=== PATIENT | male | born 1985 | race Caucasian/White ===

== ENCOUNTER 2020-10-14 22:29 | Inpatient (IN) | payer MEDICARE, MEDICAID, SELFPAY ==
--- NOTE | ~2020-10-14 | CT_ITS ---
EXAMINATION: CT ABDOMEN AND PELVIS WITHOUT CONTRAST CLINICAL INFORMATION: Severe abdominal pain. COMPARISON: None. TECHNIQUE: Contiguous axial thin section helical images of the abdomen and pelvis were performed without oral or IV contrast. The data set was reformatted in the coronal and sagittal planes and reviewed on an independent workstation. DLP: 723 mGy-cm. FINDINGS: The visualized lung bases are clear. The visualized portions of the heart are unremarkable. The liver is of normal size and attenuation without focal lesions nor intrahepatic biliary ductal dilation. A normal gallbladder is identified. There is no wall thickening or discernible pericholecystic fluid. The spleen and adrenal glands are unremarkable. The pancreas is of overall normal size and attenuation with mild edema. There is extensive adjacent fat stranding and trace free fluid. There are no drainable fluid collections. Both kidneys are of normal size and attenuation without hydronephrosis or nephrolithiasis. There is trace free fluid within the right paracolic gutter. There is neither mesenteric nor retroperitoneal lymphadenopathy. Normal unopacified loops of small and large bowel are identified. A normal appendix is identified. There is trace pelvic free fluid. The urinary bladder is unremarkable. There is neither pelvic nor inguinal lymphadenopathy. Bone windows: Neither sclerotic nor lytic bone lesions are identified. CT/CT abdomen pelvis wo con IMPRESSION: Fat stranding and trace free fluid about the pancreas indicative of pancreatitis. No drainable fluid collections. Neither necrosis or nephrolithiasis. Automated exposure control (Care Dose) Adjustment of the mA and/or kv according to patient size (this includes techniques or standardized protocols for targeted exams where dose is matched to indication / reason for exam; i.e. extremities or head).
--- NOTE | ~2020-10-14 | US_ITS ---
EXAMINATION: US ABDOMEN LIMITED CLINICAL INFORMATION: Pancreatitis, pancreas only. COMPARISON: CT abdomen from 10/15/2020 TECHNIQUE: Real-time imaging of the pancreas. FINDINGS: PANCREAS: The pancreas is partially obscured by overlying bowel gas. The visualized portions of the pancreas are unremarkable. US/US abdomen limited IMPRESSION: Pancreas is partially obscured by overlying bowel gas. Visualized portions are unremarkable.
[2020-10-14 22:39] VITALS: BP 160/98; PULSE 66; RESP 22; TEMP 36.8; O2SAT 97; BMI 34.2
[2020-10-14 23:06] LABS: MANUAL DIFF FLAG NO
[2020-10-14 23:07] LABS: Basophils Percent Auto 0.3 % (0-2); Eosinophils Absolute Auto 0.1 X10*3/uL (0.0-0.4); Eosinophils Percent Auto 0.4 % (0-4); Hematocrit 43.4 % (42-52); Hemoglobin 15.5 g/dl (14.0-18.0); Imm Gran Abs Auto 0.03 X10*3/uL (0.00-0.03); Imm Gran Pct Auto 0.2 % (0.0-0.4); Lymphocytes Absolute Auto 1.5 X10*3/uL (1.2-4.9); Lymphocytes Percent Auto 11.5 % (20-40); Mean Corpuscular HGB Conc 35.7 g/dl (31.0-36.0); Mean Corpuscular Hemoglobin 28.5 pg (27.0-33.0); Mean Corpuscular Volume 79.8 fL (80-98); Monocytes Absolute Auto 0.6 X10*3/uL (0.1-1.2); Monocytes Percent Auto 4.8 % (2-11); Neutrophils Absolute Auto 11.1 X10*3/uL (2.0-8.3); Neutrophils Percent Auto 82.8 % (45-73); Platelet Count 203 X10*3/uL (160-400); Red Blood Count 5.44 X10*6/uL (4.60-5.80); Red Cell Distribution Width 14.4 % (11.0-16.0); White Blood Count 13.4 X10*3/uL (4.8-10.8)
[2020-10-14 23:34] LABS: Anion Gap 15 (12-20); Blood Urea Nitrogen 7 mg/dL (9-16); Calcium 9.3 mg/dL (8.4-10.2); Carbon Dioxide 23 mmol/L (22-29); Chloride 100 mmol/L (96-108); Creatinine Clr Calc Pharmacy 129.9; Estimated Glomerular Filt Rate > 60; Glucose Random 160 mg/dL (60-115); Lipase 299 U/L (8-78); Potassium 3.7 mmol/L (3.3-5.1); Sodium 134 mmol/L (135-145)
[2020-10-14 23:56] VITALS: BP 159/98; PULSE 57; RESP 16; O2SAT 100
--- NOTE | 2020-10-14 23:58 | ED_ITS ---
HPI - Abdominal Pain General Chief Complaint: Abdominal Pain Stated Complaint: Abdominal pain Time Seen by Provider: 10/14/20 23:54 Source: patient Mode of arrival: ambulatory Limitations: no limitations History of Present Illness HPI narrative: 35-year-old male with history of pancreatitis presented today with severe abdominal pain started 2 days ago after drink alcohol and ate high fat foods, patient describes the pain as progressively worsening of the pain but been constant, pain is severe (10/10), pain is localized to the left side of the abdomen and epigastric area and radiates to the left flank area, pain is associated with nausea and vomiting and inability to tolerate p.o. intake, pain is worsening by food, nothing relieves the pain, patient had similar symptoms in the past when he had pancreatitis. Related Data Allergies Allergy/AdvReac Type Severity Reaction Status Date / Time clonazepam AdvReac Mild FORGETFUL Verified 10/14/20 22:43 Review of Systems Review of Systems All other systems are reviewed and are negative Constitutional: Reports as per HPI and Reports no additional constitutional complaints Eyes: Reports as per HPI and Reports no additional eye complaints Reports system reviewed and no additional complaints, except as documented Cardiovascular: Reports as per HPI and Reports no additional cardiovascular complaints Respiratory: Reports as per HPI and Reports no additional respiratory complaints Gastrointestinal: Reports as per HPI and Reports no additional gastrointestinal complaints Genitourinary: Reports no additional female genitourinary complaints Musculoskeletal: Reports no additional musculoskeletal complaints Skin/Breast: Reports system reviewed and no additional complaints, except as docu Psychiatric: Reports no additional psychiatric complaints Endocrine: Reports no additional endocrine complaints Hematologic/Lymphatic: Reports no additional hematologic/lymphatic complaints Allergic/Immunologic: Reports no additional allergic/immunologic complaints Reports system reviewed and no additional complaints, except as documented and Reports Abnormal speech present Physical Exam Vital Signs: Vital Signs: Last Vital Signs Temp 98.2 F 10/14/20 22:39 Pulse 65 10/15/20 01:06 Resp 16 10/15/20 01:07 BP 132/71 10/15/20 01:06 Pulse Ox 98 10/15/20 01:06 Body Mass Index 34.2 Vital signs have been reviewed as normal and appeared to be correct. Blood pressure in the high range. Heart rate tachycardia. Respiration rate normal. Temperature normal. Oxygen saturation normal. Appearance: Alert. Oriented X3. No acute distress. Head: Normal external exam. Normocephalic. Atraumatic. No Pacheco signs noted. No raccoon eyes noted Eyes: PERRLA. EOMI. Conjunctiva and sclera normal. Eyelids normal. ENT: TM's Normal. Pharynx normal. Uvula midline. Moist mucous membranes. No trismus noted. No drooling noted. No muffled voice noted. Neck: Normal inspection. Neck supple. FROM. No adenopathy. Thyroid Normal. No meningeal signs. No neck mass noted. CVS: Normal heart rate and rhythm. Heart sound normal. No murmurs noted. Pulses normal throughout. Respiratory: No respiratory distress. Painless inspiration. Breath sounds normal. No wheezes/rales/rhonchi noted. Chest nontender. No accessory muscle usage noted or decreased air movement noted. Abdomen: Soft and mild tenderness in the epigastric area.. Bowel sounds normal in all 4 quadrants. No distention noted. No organomegaly noted. No visible injury noted. Back: No CVA tenderness. Full range of motion noted. Skin: Skin warm and dry. Normal skin color. Normal skin turgor. No rashes/lesions/lacerations noted. Extremities: No lower extremity edema. Extremities exhibit normal range of motion. Extremities nontender. Neuro: Oriented X 3. No motor deficit. No sensory deficit. Reflexes normal. Course Course Course Narrative: Acute alcoholic pancreatitis with intractable pain and vomiting. Patient required multiple doses of Dilaudid and Zofran/IV hydration. Will admit the patient for further hydration and pain control. MDM - Abdominal Pain Lab Data Attestation: I reviewed the patient's lab results. Result diagrams: 10/14/20 22:51 10/14/20 22:51 Labs: Lab Results 10/14/20 10/14/20 10/14/20 Range/Units 22:51 22:51 22:51 WBC 13.4 H (4.8-10.8) X10*3/uL RBC 5.44 (4.60-5.80) X10*6/uL Hgb 15.5 (14.0-18.0) g/dl Hct 43.4 (42-52) % MCV 79.8 L (80-98) fL MCH 28.5 (27.0-33.0) pg MCHC 35.7 (31.0-36.0) g/dl RDW 14.4 (11.0-16.0) % Plt Count 203 (160-400) X10*3/uL MPV 9.0 L (9.4-12.4) fL Immature Gran % (Auto) 0.2 (0.0-0.4) % Neut % (Auto) 82.8 H (45-73) % Lymph % (Auto) 11.5 L (20-40) % [place] % (Auto) 4.8 (2-11) % Eos % (Auto) 0.4 (0-4) % Baso % (Auto) 0.3 (0-2) % Lymph # (Auto) 1.5 (1.2-4.9) X10*3/uL [place] # (Auto) 0.6 (0.1-1.2) X10*3/uL Eos # (Auto) 0.1 (0.0-0.4) X10*3/uL Baso # (Auto) 0.0 (0.0-0.2) X10*3/uL Abs Immat Gran (auto) 0.03 (0.00-0.03) X10*3/uL Absolute Neuts (auto) 11.1 H (2.0-8.3) X10*3/uL Absolute Nucleated RBC 0.000 (0.0-0.012) X10*3/uL Nucleated RBC % (auto) 0.0 (0.0-0.2) /100WBC Hold Purple Top SEE NOTE Hold Blue Top Sodium 134 L (135-145) mmol/L Potassium 3.7 (3.3-5.1) mmol/L Chloride 100 (96-108) mmol/L Carbon Dioxide 23 (22-29) mmol/L Anion Gap 15 (12-20) BUN 7 L (9-16) mg/dL Creatinine 0.91 (0.5-1.4) mg/dL Estim Creat Clear Calc 129.9 Estimated GFR > 60 Random Glucose 160 H (60-115) mg/dL Calcium 9.3 (8.4-10.2) mg/dL Lipase 299 H (8-78) U/L 10/14/20 Range/Units 22:51 WBC (4.8-10.8) X10*3/uL RBC (4.60-5.80) X10*6/uL Hgb (14.0-18.0) g/dl Hct (42-52) % MCV (80-98) fL MCH (27.0-33.0) pg MCHC (31.0-36.0) g/dl RDW (11.0-16.0) % Plt Count (160-400) X10*3/uL MPV (9.4-12.4) fL Immature Gran % (Auto) (0.0-0.4) % Neut % (Auto) (45-73) % Lymph % (Auto) (20-40) % [place] % (Auto) (2-11) % Eos % (Auto) (0-4) % Baso % (Auto) (0-2) % Lymph # (Auto) (1.2-4.9) X10*3/uL [place] # (Auto) (0.1-1.2) X10*3/uL Eos # (Auto) (0.0-0.4) X10*3/uL Baso # (Auto) (0.0-0.2) X10*3/uL Abs Immat Gran (auto) (0.00-0.03) X10*3/uL Absolute Neuts (auto) (2.0-8.3) X10*3/uL Absolute Nucleated RBC (0.0-0.012) X10*3/uL Nucleated RBC % (auto) (0.0-0.2) /100WBC Hold Purple Top Hold Blue Top SEE NOTE Sodium (135-145) mmol/L Potassium (3.3-5.1) mmol/L Chloride (96-108) mmol/L Carbon Dioxide (22-29) mmol/L Anion Gap (12-20) BUN (9-16) mg/dL Creatinine (0.5-1.4) mg/dL Estim Creat Clear Calc Estimated GFR Random Glucose (60-115) mg/dL Calcium (8.4-10.2) mg/dL Lipase (8-78) U/L Imaging Data CT scan - abdomen: Radiologist's impression: Fat stranding and trace free fluid about the pancreas indicative of pancreatitis. No drainable fluid collections. Neither necrosis or nephrolithiasis. Discharge Plan Discharge Clinical Impression: Pancreatitis Patient Disposition: Admitted As Inpatient [facility] Past Medical History Medical History GERD (gastroesophageal reflux disease) H/O acute pancreatitis Social History Social History Alcohol intake: current Alcohol intake frequency: a few times a month Smoking Status: Never smoker Use of substances other than those prescribed or required for medical reasons: Yes Substance Use Type: Marijuana Advance Directives: No Advance Directives Information Provided: No
[2020-10-15] VITALS (13 sets, daily range): BP systolic 132–163; BP diastolic 66–88; PULSE 54–72; RESP 14–18; TEMP 36.1–37; O2SAT 96–99
[2020-10-15] MEDS: 0.9 % Sodium Chloride 1,000 ML 999 ML IVCONT (00:16)
[2020-10-15] MEDS: HYDROmorphone HCl 1 MG/ML SYRINGE IVPUSH ×3 (00:16→08:52)
[2020-10-15] MEDS: ondansetron HCL 4 MG/2 ML VIAL IVPUSH ×2 (00:16→09:40)
[2020-10-15 02:52] LABS: COVID-19 Test Negative (Negative)
[2020-10-15 03:20] LABS: Triglycerides 151 mg/dL
--- NOTE | 2020-10-15 03:29 | PC.NURSE ---
Pt continues to report L abd pain. Pt reports minimal improvement s/p dilaudid doses earlier. This RN to bedside with PRN morphine. Pt states morphine always makes my stomach worse. I'm telling you, it makes me bloated down by my private parts. Pt requesting pain med PRN order be changed to dilaudid. Hospitalist TT with pt's request, awaiting reply.
[2020-10-15] MEDS: Enoxaparin Sodium 40 MG/0.4 ML SYRINGE SUBCUT (03:48)
[2020-10-15] MEDS: HYDROmorphone HCl 0.5 MG/0.5 ML SYRINGE IVPUSH (03:49)
[2020-10-15] MEDS: 0.9 % Sodium Chloride 1,000 ML 200 ML IVCONT ×5 (03:50→23:34)
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
[2020-10-15] MEDS: HYDROmorphone HCl 0.5 MG/0.5 ML SYRINGE 2 MG IVPUSH ×5 (05:59→22:39)
[2020-10-15] MEDS: hydrOXYzine HCL 50 MG TABLET PO ×2 (05:59→20:35)
--- NOTE | 2020-10-15 06:21 | PC.NURSE ---
Report attempted x 1
[2020-10-15 07:52] LABS: Alanine Aminotransferase 22 U/L (0-40); Albumin Level 4.5 g/dL (3.5-5.0); Alkaline Phosphatase 65 U/L (39-117); Aspartate Amino Transferase 22 U/L (5-37); Bilirubin Direct 0.4 mg/dL (0.0-0.5); Bilirubin Total 1.2 mg/dL (0.0-1.0); Total Protein 7.5 g/dL (6.5-8.0)
[2020-10-15 08:55] LABS: Glucose Urine UA NEG (NEG); Leukocyte Esterase Urine NEG (NEG); Nitrite Urine NEG (NEG); Urine Blood TRACE (NEG); Urine Ketones 5 MG/DL (NEG); Urine Protein NEG (NEG-TRACE)
[2020-10-15 09:02] LABS: Appearance Urine CLEAR; Color Urine YELLOW
[2020-10-15 09:05] LABS: RBC Urine 0-2 /HPF (0); WBC Urine 0 /HPF (0-4)
[2020-10-15] MEDS: Ketorolac Tromethamine 15 MG/ML VIAL IV ×3 (10:01→22:05)
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
[2020-10-15] MEDS: 0.9 % Sodium Chloride Flush 3 ML SYRINGE IVFLUSH (14:47)
[2020-10-16] MEDS: Enoxaparin Sodium 40 MG/0.4 ML SYRINGE SUBCUT (02:41)
[2020-10-16] MEDS: HYDROmorphone HCl 0.5 MG/0.5 ML SYRINGE 2 MG IVPUSH ×2 (02:42→06:53)
[2020-10-16 03:47] VITALS: BP 153/90; PULSE 65; RESP 16; TEMP 37.2; O2SAT 99
[2020-10-16] MEDS: Ketorolac Tromethamine 15 MG/ML VIAL IV ×3 (03:58→16:07)
[2020-10-16] MEDS: 0.9 % Sodium Chloride 1,000 ML 200 ML IVCONT ×6 (03:58→23:33)
[2020-10-16 06:29] LABS: MANUAL DIFF FLAG NO
[2020-10-16 06:52] LABS: Basophils Absolute Auto 0.1 X10*3/uL (0.0-0.2); Basophils Percent Auto 0.5 % (0-2); Eosinophils Absolute Auto 0.2 X10*3/uL (0.0-0.4); Eosinophils Percent Auto 1.7 % (0-4); Hematocrit 38.4 % (42-52); Hemoglobin 13.3 g/dl (14.0-18.0); Imm Gran Abs Auto 0.03 X10*3/uL (0.00-0.03); Imm Gran Pct Auto 0.3 % (0.0-0.4); Lymphocytes Absolute Auto 2.1 X10*3/uL (1.2-4.9); Lymphocytes Percent Auto 20.4 % (20-40); Mean Corpuscular HGB Conc 34.6 g/dl (31.0-36.0); Mean Corpuscular Hemoglobin 28.3 pg (27.0-33.0); Mean Corpuscular Volume 81.7 fL (80-98); Mean Platelet Volume 9.4 fL (9.4-12.4); Monocytes Absolute Auto 0.6 X10*3/uL (0.1-1.2); Monocytes Percent Auto 5.8 % (2-11); Neutrophils Absolute Auto 7.4 X10*3/uL (2.0-8.3); Neutrophils Percent Auto 71.3 % (45-73); Platelet Count 170 X10*3/uL (160-400); Red Cell Distribution Width 14.4 % (11.0-16.0); White Blood Count 10.4 X10*3/uL (4.8-10.8)
[2020-10-16 07:19] LABS: Anion Gap 13 (12-20); Blood Urea Nitrogen 5 mg/dL (9-16); Carbon Dioxide 25 mmol/L (22-29); Chloride 103 mmol/L (96-108); Creatinine Clr Calc Pharmacy 140.7; Estimated Glomerular Filt Rate > 60; Glucose Random 100 mg/dL (60-115); Potassium 3.7 mmol/L (3.3-5.1); Sodium 137 mmol/L (135-145)
[2020-10-16 07:40] LABS: Calcium 8.7 mg/dL (8.4-10.2)
[2020-10-16 07:58] VITALS: BP 134/80; PULSE 91; RESP 16; TEMP 37.1; O2SAT 96
--- NOTE | 2020-10-16 10:38 | HO.PM.IMPN ---
Subjective Subjective Date of Service: 10/16/20 Interval History: the patient was seen and evaluated this morning Laying in bed, feels more comfortable today but still has significant amount of pain, no vomiting reported Denies any fever, chills or shortness of breath No reported other overnight events. Systemic review: No fever, chills or weakness No chest pain, palpitation No shortness of breath or coughing Abdominal pain still significant met improves with pain medications, no vomiting No urinary symptoms No any rash or wounds Physical Exam Vital Signs: Vital Signs: Last Vital Signs Temp 98.7 F 10/16/20 07:58 Pulse 91 10/16/20 07:58 Resp 16 10/16/20 07:58 BP 134/80 10/16/20 07:58 Pulse Ox 96 10/16/20 07:58 Body Mass Index 34.2 Const: Other: Constitutional : Alert, oriented, not in distress Neck : Normal inspection, Supple Cardiovascular : RRR, S1 S2, no lower extremity edema Respiratory : Good bilateral air entry, no crackles, wheezes or rhonchi Gastrointestinal: soft, lax, decreased bowel sounds, significant tenderness mainly in epigastric area Skin : Warm/Dry, No rash Neurological : Alert & oriented x3, No focal deficit Objective Data Current Medications Generic Name Dose Route Start Last Admin Trade Name Freq PRN Reason Stop Dose Admin Acetaminophen 650 mg 10/15/20 03:02 Acetaminophen 325 Mg Tablet PO Q6H PRN Pain, Mild (Pain Scale 1-3) Docusate Sodium 100 mg 10/15/20 03:02 Docusate Sodium 100 Mg Capsule PO DAILY PRN Constipation Enoxaparin Sodium 40 mg 10/15/20 03:02 10/16/20 02:41 Enoxaparin Sodium 40 Mg/0.4 Ml Syringe SUBCUT 40 mg Q24H LILLI Administration Hydromorphone HCl 2 mg 10/16/20 09:01 Hydromorphone Hcl 2 Mg/Ml Vial IVPUSH Q4H PRN Pain, Severe (Pain Scale 7-10) Hydroxyzine HCl 50 mg 10/15/20 05:24 10/15/20 20:35 Hydroxyzine Hcl 50 Mg Tablet PO 50 mg Q6H PRN Administration anxiety/restlessness Sodium Chloride 1,000 mls @ 200 mls/hr 10/15/20 03:02 10/16/20 09:06 Ns IVCONT 200 mls/hr .Q5H LILLI Administration Ketorolac Tromethamine 15 mg 10/15/20 10:00 10/16/20 09:10 Ketorolac Tromethamine 15 Mg/Ml Vial IV 10/16/20 16:01 15 mg Q6H LILLI Administration Ondansetron HCl 4 mg 10/15/20 03:02 10/15/20 09:40 Ondansetron Hcl 4 Mg/2 Ml Vial IVPUSH 4 mg Q8H PRN Administration Nausea and Vomiting Sodium Chloride 3 ml 10/15/20 08:00 10/16/20 09:06 0.9 % Sodium Chloride Flush 3 Ml Syringe IVFLUSH Not Given QSHIFT [facility] Labs CBC & Chem 7: 10/16/20 06:13 10/16/20 06:13 Assessment and Plan (1) Acute pancreatitis: Status: Acute (2) Leukocytosis: Status: Acute (3) Alcohol abuse: Status: Acute Assessment and Plan: 35-year-old presents to hospital with abdominal pain found to have pancreatitis acute pancreatitis secondary to alcohol abuse CT abdomen as reported Continue IV fluid Continue Dilaudid for pain control leukocytosis Likely secondary to acute pancreatitis No need for antibiotics alcohol abuse Continue CIWA as he has no hx of withdrawal Advised to quit drinking as this is the 4th time he has pancreatitis To get care team involved Obesity Could be contributing to his ongoing problems, advised to lose weight DVT prophylaxis: Lovenox
[2020-10-16 11:02] VITALS: BP 160/98; PULSE 81; RESP 16; TEMP 36.5; O2SAT 99
[2020-10-16] MEDS: HYDROmorphone HCl 2 MG/ML VIAL IVPUSH ×4 (11:04→23:30)
[2020-10-16] MEDS: hydrOXYzine HCL 50 MG TABLET PO (13:42)
[2020-10-16 14:55] VITALS: BMI 34.2
[2020-10-16 15:47] VITALS: BP 142/77; PULSE 74; RESP 14; TEMP 37; O2SAT 97
[2020-10-16] MEDS: 0.9 % Sodium Chloride Flush 3 ML SYRINGE IVFLUSH (16:09)
[2020-10-16 19:12] VITALS: BP 136/69; PULSE 62; RESP 14; TEMP 36.4; O2SAT 99
[2020-10-16 23:32] VITALS: BP 145/83; PULSE 75; RESP 18; TEMP 37; O2SAT 98
[2020-10-17] VITALS (9 sets, daily range): BP systolic 132–146; BP diastolic 67–84; PULSE 60–72; RESP 14–20; TEMP 36.6–37.2; O2SAT 96–99
[2020-10-17] MEDS: Enoxaparin Sodium 40 MG/0.4 ML SYRINGE SUBCUT (03:30)
[2020-10-17] MEDS: HYDROmorphone HCl 2 MG/ML VIAL IVPUSH ×2 (03:30→07:31)
[2020-10-17] MEDS: 0.9 % Sodium Chloride 1,000 ML 200 ML IVCONT (04:16)
[2020-10-17 07:12] LABS: Anion Gap 13 (12-20); Blood Urea Nitrogen 4 mg/dL (9-16); Calcium 8.4 mg/dL (8.4-10.2); Carbon Dioxide 26 mmol/L (22-29); Chloride 105 mmol/L (96-108); Creatinine Clr Calc Pharmacy 149.6; Estimated Glomerular Filt Rate > 60; Glucose Random 112 mg/dL (60-115); Sodium 140 mmol/L (135-145)
[2020-10-17] MEDS: Omeprazole 40 MG CAPSULE.DR PO (10:50)
[2020-10-17] MEDS: Ketorolac Tromethamine 15 MG/ML VIAL IV ×3 (10:50→22:35)
--- NOTE | 2020-10-17 14:07 | HO.PM.IMPN ---
Subjective Subjective Date of Service: 10/17/20 Interval History: the patient was seen and evaluated this morning Laying in bed, feels more comfortable today but still has epigastric and back pain, with episodes of diarrhea reported Denies any fever, chills or shortness of breath No reported other overnight events. Systemic review: No fever, chills or weakness No chest pain, palpitation No shortness of breath or coughing Abdominal pain still significant met improves with pain medications, no vomiting No urinary symptoms No any rash or wounds Physical Exam Vital Signs: Vital Signs: Last Vital Signs Temp 98.4 F 10/17/20 12:00 Pulse 60 10/17/20 12:00 Resp 19 10/17/20 12:00 BP 140/75 H 10/17/20 12:00 Pulse Ox 96 10/17/20 12:00 Body Mass Index 34.2 Const: Other: Constitutional : Alert, oriented, not in distress Neck : Normal inspection, Supple Cardiovascular : RRR, S1 S2, no lower extremity edema Respiratory : Good bilateral air entry, no crackles, wheezes or rhonchi Gastrointestinal: soft, lax, decreased bowel sounds, significant tenderness mainly in epigastric area Skin : Warm/Dry, No rash Neurological : Alert & oriented x3, No focal deficit Objective Data Current Medications Generic Name Dose Route Start Last Admin Trade Name Freq PRN Reason Stop Dose Admin Acetaminophen 650 mg 10/15/20 03:02 Acetaminophen 325 Mg Tablet PO Q6H PRN Pain, Mild (Pain Scale 1-3) Docusate Sodium 100 mg 10/15/20 03:02 Docusate Sodium 100 Mg Capsule PO DAILY PRN Constipation Enoxaparin Sodium 40 mg 10/15/20 03:02 10/17/20 03:30 Enoxaparin Sodium 40 Mg/0.4 Ml Syringe SUBCUT 40 mg Q24H LILLI Administration Hydromorphone HCl 1 mg 10/17/20 10:34 Hydromorphone Hcl 2 Mg/Ml Vial IVPUSH Q4H PRN Pain, Severe (Pain Scale 7-10) Hydroxyzine HCl 50 mg 10/15/20 05:24 10/16/20 13:42 Hydroxyzine Hcl 50 Mg Tablet PO 50 mg Q6H PRN Administration anxiety/restlessness Sodium Chloride 1,000 mls @ 150 mls/hr 10/15/20 03:02 10/17/20 10:04 Ns IVCONT Infused .[id number] LILLI Infusion Ketorolac Tromethamine 15 mg 10/17/20 11:00 10/17/20 10:50 Ketorolac Tromethamine 15 Mg/Ml Vial IV 10/18/20 17:01 15 mg Q6H LILLI Administration Omeprazole 40 mg 10/17/20 10:45 10/17/20 10:50 Omeprazole 40 Mg Capsule.Dr PO 40 mg DAILY@0630 LILLI Administration Ondansetron HCl 4 mg 10/15/20 03:02 10/15/20 09:40 Ondansetron Hcl 4 Mg/2 Ml Vial IVPUSH 4 mg Q8H PRN Administration Nausea and Vomiting Sodium Chloride 3 ml 10/15/20 08:00 10/17/20 07:18 0.9 % Sodium Chloride Flush 3 Ml Syringe IVFLUSH Not Given QSHIFT [facility] Labs CBC & Chem 7: 10/16/20 06:13 10/17/20 06:13 Assessment and Plan (1) Acute pancreatitis: Status: Acute (2) Leukocytosis: Status: Acute (3) Alcohol abuse: Status: Acute Assessment and Plan: 35-year-old presents to hospital with abdominal pain found to have pancreatitis acute pancreatitis secondary to alcohol abuse CT abdomen as reported Decrease the rate IV fluid Decrease Dilaudid for pain control Add Toradol Advanced diet to regular leukocytosis Likely secondary to acute pancreatitis No need for antibiotics alcohol abuse Continue CIWA as he has no hx of withdrawal Advised to quit drinking as this is the 4th time he has pancreatitis To get care team involved Obesity Could be contributing to his ongoing problems, advised to lose weight DVT prophylaxis: Lovenox
[2020-10-17] MEDS: HYDROmorphone HCl 2 MG/ML VIAL 1 MG IVPUSH ×3 (15:17→23:49)
[2020-10-17] MEDS: hydrOXYzine HCL 50 MG TABLET PO (19:21)
[2020-10-17] MEDS: 0.9 % Sodium Chloride 1,000 ML 150 ML IVCONT (19:26)
[2020-10-17] MEDS: 0.9 % Sodium Chloride Flush 3 ML SYRINGE IVFLUSH (22:35)
[2020-10-18 00:56] VITALS: RESP 16
[2020-10-18] MEDS: 0.9 % Sodium Chloride 1,000 ML 150 ML IVCONT (01:40)
[2020-10-18 03:44] VITALS: RESP 18
[2020-10-18] MEDS: HYDROmorphone HCl 2 MG/ML VIAL 1 MG IVPUSH (03:44)
[2020-10-18] MEDS: Enoxaparin Sodium 40 MG/0.4 ML SYRINGE SUBCUT (03:44)
[2020-10-18 03:48] VITALS: BP 148/80; PULSE 86; RESP 18; TEMP 36.6; O2SAT 99
[2020-10-18 04:49] VITALS: RESP 16
[2020-10-18] MEDS: Ketorolac Tromethamine 15 MG/ML VIAL IV ×2 (05:44→10:06)
[2020-10-18] MEDS: Omeprazole 40 MG CAPSULE.DR PO (05:44)
[2020-10-18 08:00] VITALS: BP 158/79; PULSE 66; RESP 19; TEMP 36.4; O2SAT 99
--- NOTE | 2020-10-18 09:41 | PM.DS ---
DS: Providers Provider Date of Service: 10/18/20 Date of admission: 10/15/20 02:59 Primary care physician: Unknown Physician DS: Diagnosis Discharge Diagnosis (1) Acute pancreatitis: Status: Acute (2) Leukocytosis: Status: Acute (3) Alcohol abuse: Status: Acute DS: Summary Hospital Course Hospital Course: Admission note HPI This is a 35-year-old male with past medical history of pancreatitis, as well as PTSD who presents to the hospital with complaints of abdominal pain. Patient reports that his symptoms started few days ago, pain is epigastric radiating to the back into the groin. Pain is 10/10, twisting, stabbing in sensation. No relieving or exacerbating factors. Morphine as well as low-dose Dilaudid did not help the pain as he received him in the ED. Patient is also nauseous, having significant amount of vomiting with everything that he eats or drinks. He reports that he has not been able to keep anything down for few days. He has no fever or chills, no headache, change in vision, no chest pain, no shortness of breath, no cough, no lower extremity edema. Patient reports that he has pain in the groin area/suprapubic region. He has not been peeing a lot because he has not been drinking. On arrival to the ED patient has a temp of 98.2?, respiratory rate of 22, heart rate of 66, blood pressure 160/98. Satting 97% on room air Labs are significant for WBC count of 13.4, sodium of 134, BUN of 7, creatinine of 0.91, lipase of 299, Abdominal CT shows fat stranding and trace free fluid about the pancreas indicative of pancreatitis. Hospital course The patient was treated with IV fluids of 200 cc/hour of normal saline, NPO for the 1st day and usage of Dilaudid as needed for pain. His diet was advanced slowly during the hospital stay as tolerated as the patient reported decrease pain and nausea. He was able to tolerate regular diet and his pain requirement decreased significantly Advised complete absence from alcohol and to advance diet slowly at home. Time Spent with Patient Time attestation: Total time spent providing and/or coordinating discharge services: Discharge coordination time: Greater than 30 minutes Physical Exam Vital Signs: Vital Signs: Last Vital Signs Temp 97.5 F 10/18/20 08:00 Pulse 66 10/18/20 08:00 Resp 19 10/18/20 08:00 BP 158/79 H 10/18/20 08:00 Pulse Ox 99 10/18/20 08:00 Body Mass Index 34.2 Constitutional : Alert, oriented, not in distress Neck : Normal inspection, Supple Cardiovascular : RRR, S1 S2, no lower extremity edema Respiratory : Good bilateral air entry, no crackles, wheezes or rhonchi Gastrointestinal: soft, lax, Normal bowel sounds, Non tender Skin : Warm/Dry, No rash Neurological : Alert & oriented x3, No focal deficit Discharge Plan Discharge Patient Disposition: Home, Self-Care Referrals: Physician,Unknown [Primary Care Provider] - Discharge Orders: Discharge Order (Routine); Ordered 10/18/20 Ordered By: Fe Ott Diet: advance to usual diet Activity on Discharge: As tolerated Stand Alone Forms: Patient Portal Discharge page Visit Report Forms: Patient Portal Discharge page Care Plan Goals: No read Health Concerns: No read Plan of Treatment: You were admitted to the hospital for treatment of acute pancreatitis. Your responded well to the treatment with IV fluids, pain medication and slowly advancing diet over the course of hospital stay. Advance your diet slowly at home Avoid fatty food We advise you complete abstinence from alcohol
[2020-10-18] MEDS: hydrOXYzine HCL 50 MG TABLET PO (10:06)
--- NOTE | 2020-10-18 10:08 | MHC.CM.PN ---
Patient has been medically cleared for dc to home today, no services. Second IMM addressed with Patient at bedside and original has been given to him and a copy has been placed on the chart.
== END 2020-10-18 11:44 | disposition home or self-care (01) | DRG 440 ==
LOC: HO.ED 10-15 02:01 → HO.EDOVER 10-15 05:27 → HO.S3 10-15 06:01
PROVIDERS: Admitting Provider Internal Medicine; Emergency Provider Emergency Medicine; Visit Provider Student in an Organized Health Care Education/Training Program
DX: K85.20 Alcohol induced acute pancreatitis without necrosis or infection (principal); D72.829 Elevated white blood cell count, unspecified; K21.9 Gastro-esophageal reflux disease without esophagitis; F43.10 Post-traumatic stress disorder, unspecified; F10.10 Alcohol abuse, uncomplicated; E66.9 Obesity, unspecified; Z68.34 Body mass index [BMI] 34.0-34.9, adult; Z20.822 Contact with and (suspected) exposure to COVID-19
CPT/HCPCS: 36415; 74176; 76705; 80048; 80076; 81001; 81003; 83690; 84478; 85025; 87635; 96361; 96374; 96375; 96376; 99285; J1170; J1650; J1885; J2405